=== PATIENT | male | born 1975 | race Caucasian/White ===

== ENCOUNTER 2017-08-07 13:50 | Emergency (ER) | payer OTHER ==
[2017-08-07] MEDS ORDERED: ORPHENADRINE CITRATE 30 MG/ML VIAL IM ONE (14:42)
[2017-08-07] MEDS ORDERED: KETOROLAC TROMETHAMINE 60 MG/2 ML VIAL IM ONE ×2 (14:42→15:13)
[2017-08-07] MEDS ORDERED: ORPHENADRINE CITRATE 30 MG/ML VIAL ONE (15:13)
[2017-08-07] MEDS ORDERED: MORPHINE SULFATE 4 MG/ML SYRG IM ONE (15:51)
--- NOTE | 2017-08-07 15:51 | ERNOTE ---
Trauma/Assault HPI - Narrative Date of Service: 08/07/17 - General Stated Complaint: FELL OFF LADDER, BACK PAIN Time Seen by Provider: 08/07/17 14:32 Source: patient Exam Limitations: no limitations - Immun/Allergies/Home Medications Immunizations: IMMUNIZATION HX Immunizations Up to Date Yes Allergies/Adverse Reactions: Allergies No Known Allergies Allergy (Unverified 08/07/17 16:58) Home Medications: HOME MEDICATIONS Ibuprofen 800 mg PO 08/07/17 [Last Taken 08/07/17 06:00] - History of Present Illness Narrative: Pt. ambulates in with c/o back and neck pain after10 foot fall from ladder at approximately 18 hours ago. Pt. states that during the fall he hit his back on the ground so hard that it knocked the wind out of him and made him break a molar in the back of his mouth. Pt. denies any SOB, CP, NVD, fever, recent illness, numbness, tingling, or incontinence. Pt. denies any alleviating factors or perhospital treatment. but states that movement and ambulation exacerbates the symptoms. Review of Systems - Review of Systems Constitutional: Present: no symptoms reported. Absent: recent illness, fever, chills EYE: Present: no symptoms reported ENT: Present: no symptoms reported Respiratory: Present: no symptoms reported. Absent: shortness of breath, cough , wheezing Cardiology: Present: no symptoms reported. Absent: chest pain, palpitations, edema Gastrointestinal/Abdominal: Present: no symptoms reported. Absent: nausea, vomiting, diarrhea Genitourinary: Present: no symptoms reported. Absent: frequency, pain, dysuria , hematuria Musculoskeletal: Present: back pain, neck pain Skin: Present: no symptoms reported. Absent: rash, dryness, lesions, lumps Neurological: Present: no symptoms reported Endocrine: Present: no symptoms reported All Other Systems: All systems neg except as marked - Patient's Past Medical History Patient History - Medical: No pertinent hx Patient History - Surgical Procedures: Other, Hernia Repair - Social History Living Situations: home Psych History: No pertinent hx Smoking Status: Current every day smoker - Immunizations Immunizations Up to Date: Yes Physical Exam - Physical Exam General Appearance: Present: wd/wn, alert, no apparent distress Head Exam: Present: normal inspection, no evidence of injury Eye Exam: Normal inspection: bilateral, PERRL: bilateral, EOMI: bilateral Ears, Nose, Throat: Present: other Neck: Present: supple, limited range of motion - L rotation and extension, tender lateral - L, tender posterior midline - C5-7 Respiratory: Present: no respiratory distress, normal breath sounds, no accessory muscle use, chest nontender Cardiovascular/Chest: Present: regular rate, rhythm, no murmur, normal peripheral pulses Back Exam: Present: vertebral tenderness - T 7-12, decreased range of motion - flexion and extension R sided flexion Extremity Exam: Present: normal inspection, non-tender, normal range of motion, no edema Neurological Exam: Present: alert, oriented, normal mood/affect, no motor/ sensory deficits Skin Exam: Present: normal color, warm/dry - C-Collar: C-Collar:: Left in place Date:: 08/07/17 Time:: 16:33 - Long Board: Left in place Date:: 08/07/17 Time:: 16:33 ED Progress - Date and Time Seen: Date and Time: 08/07/17 16:33 Back board and C collar applied. Discussed case with Dr Fraga and Dr Amara shields and we all feel that pt. needs to be transferred to tertiary care center for MRI and further determination of extent of injury and treatment. 08/07/17 17:[address] Lennon and he accepts for admission to medical floor. Discussed with Dr Knox from neurosurgery and he would like pt. to go through the ER first to ensure that he receives MRI. Awaiting return call from bed control to see if this is ok with [facility] protocols. 08/07/17 17:15 Discussed with Diego from Bed control and she states to send pt. via the ER and Dr Knox is giving report to their ERP and he will call me if he has any questions. - Results and Orders Patient's Lab Results:: I have reviewed the patient's lab results. - Vital Signs Patient's Vital Signs:: I have reviewed the patient's vital signs. Vital Signs: Vital Signs 08/07/17 14:14 Temperature 37.4 C Pulse Rate 86 Respiratory 14 Rate Blood Pressure 171/81 O2 Sat by Pulse 98 Oximetry - CT/Ultrasound CT/Ultrasound Narrative: Discussed with Dr Radha Gentile and she states taht there is an age indeterminate fracture at T6 and a possible end plate fracture on C6 but states taht CT is not optimal as there is artifact and poor penetration. - Progress/Reassessment Chief Complaint: Fall Progress:: Unchanged Departure Clinical Impression: Cervical spine fracture Qualifiers: Encounter type: initial encounter Cervical vertebra fracture level: C7 Fracture type: closed Fracture morphology: unspecified fracture morphology Fracture alignment: nondisplaced Qualified Code(s): S12.601A - Unspecified nondisplaced fracture of seventh cervical vertebra, initial encounter for closed fracture Thoracic spine fracture Qualifiers: Encounter type: initial encounter Thoracic vertebra fracture level: T6 Fracture type: closed Fracture morphology: unspecified fracture morphology Qualified Code(s): S22.059A - Unspecified fracture of T5-T6 vertebra, initial encounter for closed fracture - Departure Disposition: Other health care facility Condition: Fair
[2017-08-07] MEDS ORDERED: MORPHINE SULFATE 4 MG/ML SYRG ONE (16:06)
[2017-08-07 16:13] LABS: Urine Appearance Clear; Urine Bilirubin Negative (NEGATIVE); Urine Color Yellow; Urine Ketone Negative (NEGATIVE)
[2017-08-07 16:14] LABS: Urine Bacteria None Seen; Urine Blood Negative /ul (NEGATIVE); Urine Nitrite Negative (NEGATIVE); Urine Protein Negative (NEGATIVE); Urine RBC None Seen /hpf (0-5); Urine Specific Gravity 1.015 SP.GR. (1.005-1.030); Urine Urobilinogen Normal (NORMAL); Urine WBC 0-5 /hpf (0-5); Urine pH 6.5 pH (5.0-7.0)
[2017-08-07] MEDS ORDERED: HYDROmorphone HCL 1 MG/ML DISP.SYRIN IV ONE (17:03)
[2017-08-07] MEDS ORDERED: HYDROmorphone HCL 2 MG/ML VIAL ONE (17:08)
[2017-08-07] MEDS ORDERED: HYDROmorphone HCL 2 MG/ML VIAL IV ONE (17:14)
[2017-08-07 17:35] VITALS: BP 154/84
== END 2017-08-07 17:40 | disposition short-term general hospital (02) ==
LOC: ER 13:50
DX: S22.059A Unspecified fracture of T5-T6 vertebra, initial encounter for closed fracture (principal); S12.601A Unspecified nondisplaced fracture of seventh cervical vertebra, initial encounter for closed fracture; W11.XXXA Fall on and from ladder, initial encounter; Y93.9 Activity, unspecified; Y92.9 Unspecified place or not applicable; F17.200 Nicotine dependence, unspecified, uncomplicated

== ENCOUNTER 2017-08-17 15:00 | Emergency (ER) | payer OTHER ==
[2017-08-17 15:26] LABS: Hematocrit 43.4 % (42.0-52.0); Hemoglobin 14.4 gm/dL (13.5-18.0); Mean Cell Volume 89.7 fl (78-100); Mean Corpuscular Hemoglobin 29.8 pg (27-31); Mean Corpuscular Hgb Conc 33.2 g/dl (32-36); Mean Platelet Volume 10.8 fl (6.0-9.5); Neutrophil # 3.8 K/mm3 (1.3-6.0); Neutrophil % 59.8 % (42-75.0); Platelet Count 234 K/mm3 (150-450); Red Blood Count 4.84 M/mm3 (4.7-6.0); Red Cell Distribution Width 13.2 % (11.5-14.0); White Blood Count 6.4 K/mm3 (4.0-10.5)
[2017-08-17 16:01] LABS: ALT 22 U/L (19-67); AST 21 U/L (0-48); Albumin * 4.1 gm/dl (3.4-5.0); Alkaline Phosphatase * 68 U/L (50-170); BUN/Creatinine Ratio 14.1 (9.0-21.6); Bilirubin, Total 0.4 mg/dL (0.0-1.1); Blood Urea Nitrogen 12 mg/dL (6-23); Ca. Corrected For Albumin 8.6 mg/dL (8.4-10.2); Chloride 104 mmol/L (97-106); Glucose * 104 mg/dL (70-110); Potassium 3.8 mmol/L (3.4-4.6); Salicylate 4.8 mg/dL (2.8-20.0); Sodium 143 mmol/L (132-142); TSH * 2.554 uIU/mL (0.358-3.74); Total Protein 7.7 gm/dL (6.2-8.2)
[2017-08-17 16:06] LABS: Anion Gap 13.9 mmol/L (6.8-13.8); Carbon Dioxide 28.9 mmol/L (24-32.6)
[2017-08-17 16:15] LABS: Urine Appearance Clear; Urine Bacteria None Seen; Urine Bilirubin Negative (NEGATIVE); Urine Blood Negative /ul (NEGATIVE); Urine Color Yellow; Urine Ketone Negative (NEGATIVE); Urine Nitrite Negative (NEGATIVE); Urine Protein Negative (NEGATIVE); Urine RBC None Seen /hpf (0-5); Urine Urobilinogen Normal (NORMAL); Urine WBC 0-5 /hpf (0-5); Urine pH 6.5 pH (5.0-7.0)
[2017-08-17 16:23] LABS: Cocaine Ur Negative (NEGATIVE); Urine Barbiturate Negative (NEGATIVE); Urine PCP Negative (NEGATIVE); Urine THC Negative (NEGATIVE)
[2017-08-17 16:25] LABS: Urine Benzodiazepines Positive (NEGATIVE); Urine Opiates Positive (NEGATIVE)
[2017-08-17] MEDS ORDERED: KETOROLAC TROMETHAMINE 60 MG/2 ML VIAL IM ONE ×2 (16:45)
[2017-08-17] MEDS ORDERED: NICOTINE 21 MG PATC TD ONE (16:45)
[2017-08-17] MEDS ORDERED: NICOTINE 21 MG PATC TD SCH (16:45)
[2017-08-17] MEDS ORDERED: ZIPRASIDONE MESYLATE 20 MG VIAL IM ONE ×2 (17:23→18:30)
[2017-08-17] MEDS ORDERED: MORPHINE SULFATE 4 MG/ML SYRG SC ONE (17:24)
[2017-08-17] MEDS ORDERED: MORPHINE SULFATE 4 MG/ML SYRG ONE (17:30)
--- NOTE | 2017-08-17 17:32 | ERNOTE ---
Psychological HPI - General Chief Complaint: Psychiatric Problem Source: Reports: patient, family Exam Limitations: Reports: no limitations - Immun/Allergies/Home Medications Allergies/Adverse Reactions: Allergies No Known Allergies Allergy (Verified 08/17/17 15:08) Home Medications: HOME MEDICATIONS NK [No Home Medication] 08/17/17 [Last Taken Unknown] - History of Present Illness Narrative: Patient presents with a variety of problems, he is been both anxious and depressed since hurting his back several weeks ago his inability to work and provide for his family. He states he is bipolar and appears to be anxiety dominant and he has not been taking medications on a regular basis for this. Today he was having a panic attack and took 25 mg of Valium to try to assist in this and it was not as effective as he hoped it would be. Patient states that if he has to continue living with this pain and depression that he is having he would just soon not live. Time Seen by Provider: 08/17/17 15:10 Arrived by: Reports: private car Onset/duration: Reports: gradual onset Intent: Reports: suicide - if he can't get help he thinks this might be the only viable option Mechanism: Reports: ingestion Situational Problems: Reports: work, other - health concerns Associated Symptoms: Reports: depressed, frustrated, other - anxious Prior Treament: Reports: recently seen, treated by physician Review of Systems - Review of Systems Constitutional: Present: See HPI EYE: Present: no symptoms reported ENT: Present: no symptoms reported Respiratory: Present: no symptoms reported Cardiology: Present: no symptoms reported Gastrointestinal/Abdominal: Present: no symptoms reported Genitourinary: Present: no symptoms reported Musculoskeletal: Present: no symptoms reported Skin: Present: no symptoms reported Neurological: Present: no symptoms reported Endocrine: Present: no symptoms reported Hematologic/Lymphatic: Present: no symptoms reported Psych: Present: no symptoms reported, anxiety, depressed, emotional problems - Patient's Past Medical History Patient History - Medical: Bipolar, Depression, Other Patient History - Cardiac/Respiratory: No pertinent hx Patient History - Cancer: No Hx of Cancer Patient History - Surgical Procedures: Other, Hernia Repair Patient History - Other: None - Social History Psych History: Hx of Bipolar Disorder, Hx of Suicide Attempt Smoking Status: Current every day smoker Have you smoked in the past 12 months: Yes Alcohol Use: occasionally Drug Use: benzodiazepine, other - Immunizations Immunizations Up to Date: Yes Psychological Exam - Exam General Appearance: Present: wd/wn, moderate distress Head Exam: Present: normal inspection Neurological: Present: alert, other - mostly anxious Thoughts/Hallucinations: Present: other - patient appears to be in an exacerbation of his bipolar disorder with his anxiety being dominant at this juncture Behavior/Eye Contact/Speech: Present: cooperative, good eye contact, increased rate of speech ENT Exam normal except (see below): Yes Ears, Nose, Throat: Present: normal ENT inspection Neck: Present: normal inspection, nontender Respiratory: Present: no respiratory distress, normal breath sounds Cardiovascular/Chest: Present: regular rate, rhythm, no murmur Gastrointestinal/Abdominal: Present: normal bowel sounds, nontender, nondistended Back Exam: Present: other - tenderness in the cervical thoracic junction Extremity Exam: Present: normal inspection, normal range of motion Skin Exam: Present: normal color, warm/dry Lymphatic Exam: Present: no adenopathy ED Progress - Results and Orders Patient's Lab Results:: I have reviewed the patient's lab results. - Vital Signs Patient's Vital Signs:: I have reviewed the patient's vital signs. Vital Signs: Vital Signs 08/17/17 15:03 Temperature 36.5 C Pulse Rate 72 Respiratory 12 Rate Blood Pressure 153/93 O2 Sat by Pulse 100 Oximetry - Progress/Reassessment Chief Complaint: Psychiatric Problem - Transfer of Care Physician Sign Out: Julien Mas Receiving Physician: Ang Reyna Expected Disposition: Transfer Plan - Plan Plan: Patient was giving 60 mg of Toradol for his chronic neck pain and 20 mg of Geodon IM for the exacerbation of his bipolar disorder. Departure Clinical Impression: Suicidal ideations, Bipolar 1 disorder - Departure Disposition: Other health care facility Condition: Fair
[2017-08-17 22:15] VITALS: BP 126/79
== END 2017-08-17 21:45 | disposition short-term general hospital (02) ==
LOC: ER 15:00
DX: R45.851 Suicidal ideations (principal); F31.9 Bipolar disorder, unspecified; F17.200 Nicotine dependence, unspecified, uncomplicated
CPT/HCPCS: 36415; 80053; 80307; 81001; 84443; 85025; 93005; 96372; 99285; G0480; G0481